=== PATIENT | female | born 1965 | race American Indian/Alaskan Native ===

== ENCOUNTER 2017-06-22 18:37 | Emergency (ER) | payer BC ==
[2017-06-22] MEDS ORDERED: TYLENOL PO ONE (20:46)
[2017-06-22 21:22] LABS: HCG Qualitative,Urine Negative (Negative)
[2017-06-22 21:24] LABS: Basophils % (Auto) 0.3 % (0.0-1.8); Hematocrit 29.9 % (30.3-42.9); Hemoglobin 10.2 gm/dl (10.1-14.3); Lymphocytes # (Auto) 0.5 K/mm3 (1.2-5.4); Lymphocytes % (Auto) 8.1 % (13.4-35.0); Mean Corpuscular HGB Conc 34 % (30-34); Mean Corpuscular Hemoglobin 33 pg (28-32); Mean Corpuscular Volume 96 fl (79-97); Monocytes # (Auto) 0.3 K/mm3 (0.0-0.8); Platelet Count 300 K/mm3 (140-440); Red Blood Count 3.13 M/mm3 (3.65-5.03); Red Cell Distribution Width 14.1 % (13.2-15.2)
[2017-06-22 21:25] LABS: Bacteria,Urine 1+ /HPF (Negative); Bilirubin,Urine NEG (Negative); Blood,Urine SM (Negative); Color,Urine Yellow (Yellow); Nitrite,Urine NEG (Negative); RBC,Urine < 1.0 /HPF (0.0-6.0); Urobilinogen,Urine < 2.0 mg/dL (<2.0); WBC,Urine < 1.0 /HPF (0.0-6.0)
[2017-06-22 21:44] LABS: BUN/Creatinine Ratio 30; Blood Urea Nitrogen 48 mg/dL (7-17); Calcium 8.7 mg/dL (8.4-10.2); Hemolysis Index 4
--- NOTE | 2017-06-22 21:48 | XRay Report ---
FINAL REPORT EXAM: XR CHEST ROUTINE 2V HISTORY: Chest pain w/ cough productive cough TECHNIQUE: 2 views of the chest. PRIORS: None. FINDINGS: The cardiomediastinal silhouette appears normal. There is a left lower lobe airspace infiltrate consistent with pneumonia. The right lung is clear. The bones and soft tissues are unremarkable. IMPRESSION: Left lower lobe airspace infiltrate consistent with pneumonia
[2017-06-22] MEDS ORDERED: K-DUR PO ONE (22:57)
[2017-06-22] MEDS ORDERED: ZITHROMAX PO ONE (23:25)
[2017-06-22] MEDS ORDERED: MOTRIN PO ONE (23:25)
--- NOTE | 2017-06-22 23:26 | Emergency Department Report ---
- General Chief Complaint: Upper Respiratory Infection Stated Complaint: CHEST/BACK PAIN Time Seen by Provider: 06/22/17 23:22 Source: patient Mode of arrival: Ambulatory Limitations: No Limitations - History of Present Illness Initial Comments: Patient is a 52-year-old female with a history of hypertension controlled with medication presents to ED complaining of cough fever and body aches for the past 4 days. Patient states today his symptoms worsen. Patient states she has intermittent generalized tenderness with legs and pain in her chest when she coughs. Patient states she has been taking TheraFlu the past 3 days. She denies nausea/vomiting/chest pain/shortness of breath. MD Complaint: fever, cough -: days(s) Severity: moderate Associated Symptoms: denies other symptoms, fever, sore throat, cough. denies: chest pain, shortness of breath, abdominal pain, nausea, vomiting, rash, confusion Treatments Prior to Arrival: "cold medicine" - Related Data Previous Rx's Medication Instructions Recorded Last Taken Type Azithromycin [Zithromax TAB] 500 mg PO QDAY #7 tablet 06/23/17 Unknown Rx Benzonatate [Tessalon Perles] 100 mg PO Q8HR #30 capsule 06/23/17 Unknown Rx Ibuprofen [Motrin] 800 mg PO Q8HR PRN #30 tablet 06/23/17 Unknown Rx Potassium Chloride 20 meq PO DAILY #4 tablet.er 06/23/17 Unknown Rx Allergies Allergy/AdvReac Type Severity Reaction Status Date / Time tramadol AdvReac Nausea Verified 06/22/17 20:27 ED Review of Systems ROS: Stated complaint: CHEST/BACK PAIN Other details as noted in HPI Constitutional: fever, malaise. denies: chills Eyes: denies: eye pain, eye discharge, vision change ENT: congestion. denies: ear pain, throat pain Respiratory: cough. denies: shortness of breath, wheezing Cardiovascular: denies: chest pain, palpitations Endocrine: no symptoms reported Gastrointestinal: denies: abdominal pain, nausea, vomiting, diarrhea Genitourinary: denies: urgency, dysuria, frequency, discharge Musculoskeletal: denies: back pain, joint swelling, arthralgia Skin: denies: rash, lesions Neurological: denies: headache, weakness, numbness, paresthesias, confusion Psychiatric: denies: anxiety, depression Hematological/Lymphatic: denies: easy bleeding, easy bruising ED Past Medical Hx - Past Medical History Previous Medical History?: Yes Hx Hypertension: Yes - Surgical History Past Surgical History?: Yes Additional Surgical History: Gastric bypass 200, Breast Reduction 2000 - Social History Smoking Status: Never Smoker - Medications Home Medications: Home Medications Medication Instructions Recorded Confirmed Last Taken Type Azithromycin [Zithromax TAB] 500 mg PO QDAY #7 tablet 06/23/17 Unknown Rx Benzonatate [Tessalon Perles] 100 mg PO Q8HR #30 capsule 06/23/17 Unknown Rx Ibuprofen [Motrin] 800 mg PO Q8HR PRN #30 tablet 06/23/17 Unknown Rx Potassium Chloride 20 meq PO DAILY #4 tablet.er 06/23/17 Unknown Rx ED Physical Exam - General Limitations: No Limitations General appearance: alert, in no apparent distress - Head Head exam: Present: atraumatic, normocephalic - Eye Eye exam: Present: normal appearance - ENT ENT exam: Present: mucous membranes moist - Neck Neck exam: Present: normal inspection - Respiratory Respiratory exam: Present: normal lung sounds bilaterally. Absent: respiratory distress, wheezes, rales, chest wall tenderness, accessory muscle use - Cardiovascular Cardiovascular Exam: Present: regular rate, normal rhythm. Absent: systolic murmur, diastolic murmur, rubs, gallop - GI/Abdominal GI/Abdominal exam: Present: soft, normal bowel sounds. Absent: distended, tenderness - Extremities Exam Extremities exam: Present: normal inspection, full ROM - Back Exam Back exam: Present: normal inspection, full ROM - Neurological Exam Neurological exam: Present: alert, oriented X3, normal gait - Psychiatric Psychiatric exam: Present: normal affect, normal mood - Skin Skin exam: Present: warm, dry, intact, normal color. Absent: rash ED Course Vital Signs 06/22/17 06/22/17 06/22/17 20:30 21:00 22:00 Temperature 100.2 F H Pulse Rate 100 H Respiratory 20 18 Rate Blood Pressure 155/68 O2 Sat by Pulse 18 L Oximetry ED Medical Decision Making - Lab Data Result diagrams: 06/22/17 21:02 06/22/17 21:02 Laboratory Last Values WBC 6.6 K/mm3 (4.5-11.0) 06/22/17 21:02 RBC 3.13 M/mm3 (3.65-5.03) L 06/22/17 21:02 Hgb 10.2 gm/dl (10.1-14.3) 06/22/17 21:02 Hct 29.9 % (30.3-42.9) L 06/22/17 21:02 MCV 96 fl (79-97) 06/22/17 21:02 MCH 33 pg (28-32) H 06/22/17 21:02 MCHC 34 % (30-34) 06/22/17 21:02 RDW 14.1 % (13.2-15.2) 06/22/17 21:02 Plt Count 300 K/mm3 (140-440) 06/22/17 21:02 Lymph % (Auto) 8.1 % (13.4-35.0) L 06/22/17 21: [place] % (Auto) 5.0 % (0.0-7.3) 06/22/17 21:02 Eos % (Auto) 0.0 % (0.0-4.3) 06/22/17 21:02 Baso % (Auto) 0.3 % (0.0-1.8) 06/22/17 21:02 Lymph # 0.5 K/mm3 (1.2-5.4) L 06/22/17 21:02 [place] # 0.3 K/mm3 (0.0-0.8) 06/22/17 21:02 Eos # 0.0 K/mm3 (0.0-0.4) 06/22/17 21:02 Baso # 0.0 K/mm3 (0.0-0.1) 06/22/17 21:02 Seg Neutrophils % 86.6 % (40.0-70.0) H 06/22/17 21:02 Seg Neutrophils # 5.7 K/mm3 (1.8-7.7) 06/22/17 21:02 Sodium 142 mmol/L (137-145) 06/22/17 21:02 Potassium 2.6 mmol/L (3.6-5.0) L* 06/22/17 21:02 Chloride 98.9 mmol/L (98-107) 06/22/17 21:02 Carbon Dioxide 23 mmol/L (22-30) 06/22/17 21:02 Anion Gap 23 mmol/L 06/22/17 21:02 BUN 48 mg/dL (7-17) H 06/22/17 21:02 Creatinine 1.6 mg/dL (0.7-1.2) H 06/22/17 21:02 Estimated GFR 34 ml/min 06/22/17 21:02 BUN/Creatinine Ratio 30 % 06/22/17 21:02 Glucose 89 mg/dL (65-100) 06/22/17 21:02 Calcium 8.7 mg/dL (8.4-10.2) 06/22/17 21: Troponin T < 0.010 ng/mL (0.00-0.029) 06/22/17 21:02 Urine Color Yellow (Yellow) 06/22/17 21:10 Urine Turbidity Clear (Clear) 06/22/17 21:10 Urine pH 5.0 (5.0-7.0) 06/22/17 21:10 Ur Specific [place] 1.011 (1.003-1.030) 06/22/17 21:10 Urine Protein 100 mg/dl mg/dL (Negative) 06/22/17 21:10 Urine Glucose (UA) Neg mg/dL (Negative) 06/22/17 21:10 Urine Ketones Neg mg/dL (Negative) 06/22/17 21:10 Urine Blood Sm (Negative) 06/22/17 21:10 Urine Nitrite Neg (Negative) 06/22/17 21:10 Ur Reducing Substances Not Reportable 06/22/17 21:10 Urine Bilirubin Neg (Negative) 06/22/17 21:10 Urine Ictotest Not Reportable 06/22/17 21:10 Urine Urobilinogen < 2.0 mg/dL (<2.0) 06/22/17 21:10 Ur Leukocyte Esterase Neg (Negative) 06/22/17 21:10 Urine WBC (Auto) < 1.0 /HPF (0.0-6.0) 06/22/17 21:10 Urine RBC (Auto) < 1.0 /HPF (0.0-6.0) 06/22/17 21:10 U Epithel Cells (Auto) 1.0 /HPF (0-13.0) 06/22/17 21:10 Urine Bacteria (Auto) 1+ /HPF (Negative) 06/22/17 21:10 Urine HCG, Qual Negative (Negative) 06/22/17 21:10 - EKG Data -: EKG Interpreted by Me EKG shows normal: sinus rhythm Rate: normal - Radiology Data Radiology results: report reviewed, image reviewed FINAL REPORT EXAM: XR CHEST ROUTINE 2V HISTORY: Chest pain w/ cough productive cough TECHNIQUE: 2 views of the chest. PRIORS: None. FINDINGS: The cardiomediastinal silhouette appears normal. There is a left lower lobe airspace infiltrate consistent with pneumonia. The right lung is clear. The bones and soft tissues are unremarkable. IMPRESSION: Left lower lobe airspace infiltrate consistent with pneumonia Transcribed By: MLG Dictated By: MEHDI SALAZAR MD Electronically Authenticated By: MEHDI SALAZAR MD Signed Date/Time: 06/22/17 0110 - Medical Decision Making 52 y o female presents with left lower lobe pneumonia ED course: Patient received azithromycin, Motrin, Robitussin and potassium while in ED. Chest x-ray, CBC, CMP, influenza a and B, rapid strep throat, EKG completed CBC within normal limits no elevated white count, low potassium CMP normal, influenza A and B negative, urinalysis positive for bacteria. Patient had no symptoms of UTI, Chest x-ray shows left lower lobe infiltrate. I discussed all findings with the patient. Patient states she's been told in the past that she has no potassium. I discussed the patient to include potassium-rich foods such as bananas to her diet. I discussed the patient to take proper care and to avoid sick contacts. I discussed antibiotic dose and to take all prescription as prescribed. I discussed with patient to follow up with her primary care physician as she states she would. Patient is in no acute or respiratory distress. Fever reduced in the ED. I discussed the patient that if she has any worsening symptoms or new symptoms to return to ED immediately. Critical care attestation.: If time is entered above; I have spent that time in minutes in the direct care of this critically ill patient, excluding procedure time. ED Disposition Clinical Impression: Hypokalemia Left lower lobe pneumonia Qualifiers: Pneumonia type: due to unspecified organism Qualified Code(s): J18.1 - Lobar pneumonia, unspecified organism Disposition: DC-01 TO HOME OR SELFCARE Is pt being admited?: No Does the pt Need Aspirin: No Condition: Stable Instructions: Bacterial Pneumonia (ED), Community-acquired Pneumonia (ED), Hypokalemia (ED) Additional Instructions: Make sure to follow up with the primary care physician as discussed. Take all your medications as you've been prescribed. If you have any worsening symptoms or develop new symptoms please return to ED immediately. Prescriptions: Azithromycin [Zithromax TAB] 500 mg PO QDAY #7 tablet Benzonatate [Tessalon Perles] 100 mg PO Q8HR #30 capsule Ibuprofen [Motrin] 800 mg PO Q8HR PRN #30 tablet PRN Reason: Pain Potassium Chloride 20 meq PO DAILY #4 tablet.er Referrals: REX KEARNEY MD [Primary Care Provider] - 3-5 Days CHACHO WALKER MD [Referring] - 3-5 Days RAFFY KENT [Staff Physician] - 3-5 Days CECILIA RAMIREZ MD [Staff Physician] - 3-5 Days Forms: Work/School Release Form(ED) Time of Disposition: 00:18
[2017-06-23] MEDS ORDERED: ROBITUSSIN PO ONE (00:06)
[2017-06-23 00:43] VITALS: BP 151/67
== END 2017-06-23 00:42 | disposition home or self-care (01) ==
LOC: ED 18:37
DX: J18.1 Lobar pneumonia, unspecified organism (principal); E87.6 Hypokalemia; I10 Essential (primary) hypertension; Z88.8 Allergy status to other drugs, medicaments and biological substances
CPT/HCPCS: 36415; 71046; 80048; 81001; 81025; 84484; 85025; 87116; 87400; 87430; 93005; 93010